=== PATIENT | male | born 1960 | race Caucasian/White ===

== ENCOUNTER 2018-04-04 10:50 | Day surgery (SDC) | payer MEDICARE, OTHER | END 2018-04-04 13:25 | disposition home or self-care (01) | LOC: GIL 10:50 | DX: K94.23 Gastrostomy malfunction (principal); Y84.8 Other medical procedures as the cause of abnormal reaction of the patient, or of later complication, without mention of misadventure at the time of the procedure; I10 Essential (primary) hypertension | CPT/HCPCS: 43760 ==